=== PATIENT | female | born 1955 | race African-American/Black ===

== ENCOUNTER 2018-06-17 18:34 | Emergency (ER) | payer OTHER ==
[~2018-06-17] VITALS: Ht 162.6 cm; Wt 77.3 kg
[~2018-06-17 18:34] MED LIST: CETI10TA58 PO; GLIP5TAB11 PO; LOSA50TA65 PO; METF-515 PO; MULT-12 PO; OMEP20CA4; PIOG45TA18 PO; PIOG45TA64 PO
[2018-06-17 19:23] LABS: BASOPHILS % (AUTO) 0.4 % (0.0-2.0); EOSINOPHILS % (AUTO) 0.3 % (1.0-6.0); HEMATOCRIT 36.1 % (36-46); HEMOGLOBIN 12.2 g/dL (12.0-16.0); LYMPHOCYTES # (AUTO) 2.1 K/uL (1.0-4.8); LYMPHOCYTES % (AUTO) 37.5 % (22.0-44.0); MEAN CORPUSCULAR HEMOGLOBIN 29.2 pg (26.0-34.0); MEAN CORPUSCULAR HGB CONC 33.7 G/dL (31.0-37.0); MEAN CORPUSCULAR VOLUME 87 fL (80-100); MONOCYTES # (AUTO) 0.5 K/uL (0.1-1.0); MONOCYTES % (AUTO) 9.9 % (2.0-9.0); NEUTROPHILS # (AUTO) 2.9 K/uL (1.8-7.7); NEUTROPHILS % (AUTO) 51.9 % (40.0-70.0); PLATELET COUNT (AUTO) 216 K/uL (150-450); RED BLOOD CELL COUNT(AUTO) 4.17 MIL/uL (4.00-5.20); RED CELL DISTRIBUTION WIDTH 14.6 % (11.5-14.5)
[2018-06-17 19:29] LABS: ANION GAP 14 mmol/L (8-16); CALCIUM, TOTAL 9.4 mg/dL (8.8-10.5); CARBON DIOXIDE 23 mmol/L (22-29); CHLORIDE 99 mmol/L (98-107); CREATININE 0.82 mg/dL (0.60-1.30); GLOMERULAR FILTR. RATE CALC > 60 mL/min (>60); GLUCOSE,RANDOM 128 mg/dL (70-110); POTASSIUM 3.4 mmol/L (3.5-5.1); SODIUM SERUM 136 mmol/L (136-145); UREA NITROGEN, BLOOD 7 mg/dL (7-18)
[2018-06-17 19:35] LABS: ALANINE AMINOTRANSFERASE 30 U/L (12-78); ALBUMIN 3.6 g/dL (3.4-5.0); ALKALINE PHOSPHATASE 85 U/L (46-116); ASPARTATE AMINOTRANSFERASE 18 U/L (15-37); BILIRUBIN,TOTAL 0.3 mg/dL (0.1-1.0); CREATINE KINASE, TOTAL ONLY 54 U/L (26-192); LIPASE 64 U/L (73-393); TOTAL PROTEIN, SERUM 7.4 g/dL (6.4-8.2)
[2018-06-17 19:40] LABS: B-TYPE NATRIURETIC PEPTIDE 30 pg/mL (0-100)
[2018-06-17 20:19] LABS: GLUCOSE,POINT OF CARE 111 MG/DL (70-110)
[2018-06-17 20:20] LABS: APPEARANCE,URINE CLEAR (CLEAR); BILIRUBIN,URINE NEGATIVE (NEGATIVE); GLUCOSE, URINE (UA) NEGATIVE (NEGATIVE); KETONES,URINE NEGATIVE (NEGATIVE); LEUKOCYTE ESTERASE ,URINE NEGATIVE (NEGATIVE); NITRATE,URINE NEGATIVE (NEGATIVE); OCCULT BLOOD,URINE NEGATIVE (NEGATIVE); PH,URINE 5.5 (5.0-8.0); PROTEIN,URINE NEGATIVE (NEGATIVE); UROBILINOGEN,URINE 0.2 mg/dL (<=1.0)
[2018-06-17 21:56] VITALS: BP 154/68
[2018-06-17] MEDS ORDERED: PANTOPRAZOLE SODIUM 40 MG DR TABLET PO ONE (22:15)
== END 2018-06-17 22:35 | disposition home or self-care (01) ==
LOC: EMS 18:36
DX: R10.84 Generalized abdominal pain (principal); R14.0 Abdominal distension (gaseous); E11.9 Type 2 diabetes mellitus without complications; I10 Essential (primary) hypertension; Z79.899 Other long term (current) drug therapy
CPT/HCPCS: 74176; 76700; 93005

== ENCOUNTER 2019-12-04 17:56 | Emergency (ER) | payer MEDICARE, OTHER ==
[~2019-12-04] VITALS: Ht 157.5 cm; Wt 59.1 kg
[~2019-12-04 17:56] MED LIST changes: -PIOG45TA18 PO; +PIOG45TA63 PO
[2019-12-04 19:54] VITALS: BP 145/81
== END 2019-12-04 19:54 | disposition home or self-care (01) ==
LOC: EMS 17:56
DX: T78.40XA Allergy, unspecified, initial encounter (principal); E11.9 Type 2 diabetes mellitus without complications; I10 Essential (primary) hypertension; Z79.84 Long term (current) use of oral hypoglycemic drugs; X58.XXXA Exposure to other specified factors, initial encounter

== ENCOUNTER 2020-10-12 10:04 | Emergency (ER) | payer MEDICARE, OTHER ==
[~2020-10-12] VITALS: Ht 162.6 cm; Wt 72.0 kg
[~2020-10-12 10:04] MED LIST changes: -PIOG45TA64 PO
[2020-10-12] MEDS ORDERED: GABA-529 PO (11:06)
[2020-10-12] MEDS ORDERED: LORA10TA7 PO (11:06)
[2020-10-12] MEDS ORDERED: FAMO20 PO (11:06)
[2020-10-12] MEDS ORDERED: METO-391 PO (11:06)
[2020-10-12] MEDS ORDERED: ONDANSETRON HCL 4 MG/2 ML VIAL IVP ONE (11:30)
[2020-10-12] MEDS ORDERED: MORPHINE SULFATE 4 MG/ML SYRINGE IVP ONE (11:30)
[2020-10-12] MEDS ORDERED: MULT-13 PO (11:41)
[2020-10-12] MEDS ORDERED: ASPI-1444 PO (11:41)
[2020-10-12] MEDS ORDERED: GLIP10 PO (11:41)
[2020-10-12] MEDS ORDERED: METF-960 PO (11:41)
[2020-10-12 11:45] LABS: BASOPHILS % (AUTO) 0.5 % (0.0-2.0); EOSINOPHILS % (AUTO) 0.2 % (1.0-6.0); HEMATOCRIT 35.6 % (36-46); HEMOGLOBIN 12.1 g/dL (12.0-16.0); LYMPHOCYTES # (AUTO) 1.5 K/uL (1.0-4.8); LYMPHOCYTES % (AUTO) 45.8 % (22.0-44.0); MEAN CORPUSCULAR HEMOGLOBIN 31.8 pg (26.0-34.0); MEAN CORPUSCULAR HGB CONC 33.9 G/dL (31.0-37.0); MEAN CORPUSCULAR VOLUME 94 fL (80-100); MONOCYTES # (AUTO) 0.3 K/uL (0.1-1.0); MONOCYTES % (AUTO) 8.6 % (2.0-9.0); NEUTROPHILS # (AUTO) 1.5 K/uL (1.8-7.7); NEUTROPHILS % (AUTO) 44.9 % (40.0-70.0); PLATELET COUNT (AUTO) 222 K/uL (150-450); RED BLOOD CELL COUNT(AUTO) 3.79 MIL/uL (4.00-5.20); RED CELL DISTRIBUTION WIDTH 14.4 % (11.5-14.5)
[2020-10-12] MEDS ORDERED: MORPHINE SULFATE 2 MG/ML SYRINGE IVP ONE (11:45)
[2020-10-12 11:52] LABS: INR 1.1 (0.9-1.1); PROTHROMBIN TIME 11.9 SEC (9.4-11.6)
[2020-10-12 11:56] LABS: ANION GAP 11 mmol/L (8-16); CALCIUM, TOTAL 8.6 mg/dL (8.8-10.5); CARBON DIOXIDE 23 mmol/L (22-29); CHLORIDE 103 mmol/L (98-107); CREATININE 0.61 mg/dL (0.60-1.30); GLOMERULAR FILTR. RATE CALC > 60 mL/min (>60); GLUCOSE,RANDOM 146 mg/dL (70-110); POTASSIUM 4.3 mmol/L (3.5-5.1); SODIUM SERUM 137 mmol/L (136-145); UREA NITROGEN, BLOOD 7 mg/dL (7-18)
[2020-10-12 11:58] LABS: B-TYPE NATRIURETIC PEPTIDE 60 pg/mL (0-100)
[2020-10-12 12:01] LABS: ALANINE AMINOTRANSFERASE 27 U/L (12-78); ALBUMIN 3.6 g/dL (3.4-5.0); ALKALINE PHOSPHATASE 71 U/L (46-116); ASPARTATE AMINOTRANSFERASE 16 U/L (15-37); BILIRUBIN,TOTAL 0.3 mg/dL (0.1-1.0); CREATINE KINASE, TOTAL ONLY 50 U/L (26-192); LIPASE 40 U/L (73-393)
[2020-10-12 13:54] VITALS: BP 182/91
== END 2020-10-12 14:58 | disposition home or self-care (01) ==
LOC: EMS 10:39
DX: G89.29 Other chronic pain (principal); M54.5 Low back pain; R07.81 Pleurodynia; R10.13 Epigastric pain; E11.9 Type 2 diabetes mellitus without complications; I10 Essential (primary) hypertension; Z87.39 Personal history of other diseases of the musculoskeletal system and connective tissue; Z79.84 Long term (current) use of oral hypoglycemic drugs; Z79.82 Long term (current) use of aspirin
CPT/HCPCS: 36415; 71045; 71250; 72128; 72131; 74176; 80053; 82550; 83690; 83880; 84484; 85025; 85610; 85730; 93005; 96374; 96375; 99285; J2270; J2405; 72192; 74150

== ENCOUNTER 2021-07-02 12:14 | Emergency (ER) | payer MEDICARE, OTHER ==
[~2021-07-02] VITALS: Ht 162.6 cm; Wt 59.0 kg
[~2021-07-02 12:14] MED LIST changes: +ASPI-1444 PO; -CETI10TA58 PO; +FAMO20 PO; +GABA-529 PO; +GLIP10 PO; -GLIP5TAB11 PO; +LORA10TA7 PO; +METF-1211 PO; -METF-515 PO; +METO-391 PO; -MULT-12 PO; +MULT-14 PO; -OMEP20CA4
[2021-07-02] MEDS ORDERED: HYDROCODONE/ACETAMINOPHEN 5-325 MG TABLET PO ONE (13:15)
[2021-07-02] MEDS ORDERED: HYDR-4723 PO ×2 (15:03→16:00)
[2021-07-02 15:33] VITALS: BP 146/82
== END 2021-07-02 15:42 | disposition home or self-care (01) ==
LOC: EMS 12:17
DX: G89.29 Other chronic pain (principal); M54.50 Low back pain, unspecified; I10 Essential (primary) hypertension; E11.9 Type 2 diabetes mellitus without complications; Z79.82 Long term (current) use of aspirin; Z79.84 Long term (current) use of oral hypoglycemic drugs; Z79.899 Other long term (current) drug therapy
CPT/HCPCS: 72072; 72100; 82962; 93005; 99284

== ENCOUNTER 2022-12-26 14:23 | Emergency (ER) | payer MEDICARE, OTHER ==
[~2022-12-26] VITALS: Ht 165.1 cm; Wt 70.5 kg
[~2022-12-26 14:23] MED LIST changes: -GLIP10 PO; +GLIP10TA10 PO; +HYDR-4723 PO
[2022-12-26 14:29] VITALS: TEMP 98.2
[2022-12-26] MEDS ORDERED: KETOROLAC TROMETHAMINE 30 MG/ML VIAL IM ONE (17:15)
[2022-12-26] MEDS ORDERED: HYDROCODONE/ACETAMINOPHEN 5-325 MG TABLET PO ONE (17:15)
[2022-12-26 18:17] VITALS: BP 160/55; PULSE 73; RESP 16
[2022-12-26] MEDS ORDERED: HYDR-4723 PO (19:35)
== END 2022-12-26 20:11 | disposition home or self-care (01) ==
LOC: EMS 14:25
DX: M25.552 Pain in left hip (principal); M25.551 Pain in right hip; E11.9 Type 2 diabetes mellitus without complications; I10 Essential (primary) hypertension; Z98.890 Other specified postprocedural states
CPT/HCPCS: 99283; 82962; 73521; 96372; J1885

== ENCOUNTER 2023-03-08 10:37 | Emergency (ER) | payer MEDICARE, OTHER ==
[~2023-03-08] VITALS: Ht 162.6 cm; Wt 61.4 kg
[~2023-03-08 10:37] MED LIST changes: -ASPI-1444 PO; -FAMO20 PO; -GABA-529 PO; -GLIP10TA10 PO; -LORA10TA7 PO; -LOSA50TA65 PO; -METF-1211 PO; -METO-391 PO; -MULT-14 PO; -PIOG45TA63 PO
[2023-03-08 10:40] VITALS: TEMP 98.3
[2023-03-08] MEDS ORDERED: PRAV40TA4 PO (10:45)
[2023-03-08] MEDS ORDERED: FAMO20TA8 PO (10:45)
[2023-03-08] MEDS ORDERED: METO-391 PO (10:45)
[2023-03-08] MEDS ORDERED: FAMO20 PO (10:45)
[2023-03-08] MEDS ORDERED: GABA600T10 PO (10:45)
[2023-03-08] MEDS ORDERED: LORA10TA7 PO (10:45)
[2023-03-08] MEDS ORDERED: DENO60DI SQ (10:45)
[2023-03-08] MEDS ORDERED: ONDANSETRON HCL 4 MG/2 ML VIAL IVP ONE (11:00)
[2023-03-08] MEDS ORDERED: SODIUM CHLORIDE 0.9% 1,000 ML IV ONE ×2 (11:00→12:15)
[2023-03-08] MEDS ORDERED: MORPHINE SULFATE 2 MG/ML SYRINGE IVP ONE (11:00)
[2023-03-08 11:16] LABS: EOSINOPHILS % (AUTO) 0 % (1.0-6.0); HEMATOCRIT 39.7 % (36-46); HEMOGLOBIN 13.4 g/dL (12.0-16.0); LYMPHOCYTES # (AUTO) 1.8 K/uL (1.0-4.8); LYMPHOCYTES % (AUTO) 30.5 % (22.0-44.0); MEAN CORPUSCULAR HEMOGLOBIN 31.9 pg (26.0-34.0); MEAN CORPUSCULAR HGB CONC 33.8 G/dL (31.0-37.0); MEAN CORPUSCULAR VOLUME 95 fL (80-100); MONOCYTES # (AUTO) 0.5 K/uL (0.1-1.0); MONOCYTES % (AUTO) 8.3 % (2.0-9.0); NEUTROPHILS # (AUTO) 3.6 K/uL (1.8-7.7); NEUTROPHILS % (AUTO) 60.2 % (40.0-70.0); PLATELET COUNT (AUTO) 244 K/uL (150-450); RED CELL DISTRIBUTION WIDTH 15.5 % (11.5-14.5)
[2023-03-08 11:46] VITALS: BP 147/75; PULSE 105; RESP 26
[2023-03-08 12:08] LABS: ALANINE AMINOTRANSFERASE 17 U/L (12-78); ALBUMIN 3.5 g/dL (3.4-5.0); ALKALINE PHOSPHATASE 63 U/L (46-116); ANION GAP 14 mmol/L (8-16); ASPARTATE AMINOTRANSFERASE 20 U/L (15-37); BILIRUBIN,TOTAL 0.7 mg/dL (0.1-1.0); CARBON DIOXIDE 22 mmol/L (22-29); CHLORIDE 105 mmol/L (98-107); GLOMERULAR FILTR. RATE CALC > 60 mL/min (>60); GLUCOSE,RANDOM 139 mg/dL (70-110); LIPASE 15 U/L (16-77); SODIUM SERUM 141 mmol/L (136-145); TOTAL PROTEIN, SERUM 6.8 g/dL (6.4-8.2); UREA NITROGEN, BLOOD 11 mg/dL (7-18)
[2023-03-08 12:09] LABS: TROPONIN I-HIGH SENSITIVITY 11 ng/L (<51)
[2023-03-08 12:11] LABS: POTASSIUM 2.9 mmol/L (3.5-5.1)
[2023-03-08] MEDS ORDERED: POTASSIUM CHLORIDE 20 MEQ ER TABLET PO ONE (12:30)
[2023-03-08 12:51] LABS: APPEARANCE,URINE CLEAR (CLEAR); BILIRUBIN,URINE NEGATIVE (NEGATIVE); COLOR,URINE LIGHT YELLOW (YELLOW); GLUCOSE, URINE (UA) NEGATIVE (NEGATIVE); LEUKOCYTE ESTERASE ,URINE NEGATIVE (NEGATIVE); NITRATE,URINE NEGATIVE (NEGATIVE); OCCULT BLOOD,URINE NEGATIVE (NEGATIVE); PROTEIN,URINE NEGATIVE (NEGATIVE); SPECIFIC GRAVITIY, URINE 1.012 (1.003-1.030); UROBILINOGEN,URINE <=1.0 mg/dL (<=1.0)
[2023-03-08] MEDS ORDERED: DOCU-385 PO (12:56)
== END 2023-03-08 13:28 | disposition home or self-care (01) ==
LOC: EMS 10:39
DX: K59.00 Constipation, unspecified (principal); E87.6 Hypokalemia; R10.84 Generalized abdominal pain; E11.9 Type 2 diabetes mellitus without complications; I10 Essential (primary) hypertension; Z98.890 Other specified postprocedural states
CPT/HCPCS: 99285; 74176; 96374; 71045; 96361; 96375; 80053; 81003; 82962; 83690; 84484; 85025; 36415; 93005; J2270; J2405; J7030

== ENCOUNTER 2023-08-17 02:07 | Emergency (ER) | payer MEDICARE, OTHER ==
[~2023-08-17] VITALS: Ht 162.6 cm; Wt 52.3 kg
[~2023-08-17 02:07] MED LIST changes: +DENO60DI SQ; +DOCU-385 PO; +FAMO20 PO; +FAMO20TA8 PO; +GABA600T10 PO; -HYDR-4723 PO; +LORA10TA7 PO; +PRAV40TA4 PO
[2023-08-17 02:19] VITALS: BP 159/86; PULSE 86; RESP 17; TEMP 98.3
[2023-08-17] MEDS ORDERED: LIDO700A15 TP (02:33)
[2023-08-17] MEDS ORDERED: ACET-2247 PO (02:33)
[2023-08-17] MEDS: LIDOCAINE 5% TRANSDERMAL PATCH TD ONE (02:45)
[2023-08-17] MEDS: ACETAMINOPHEN 325 MG TABLET PO ONE (02:45)
[2023-08-17] MEDS: KETOROLAC TROMETHAMINE 30 MG/ML VIAL IM ONE (02:46)
== END 2023-08-17 03:07 | disposition home or self-care (01) ==
LOC: EMS 02:07
DX: G89.29 Other chronic pain (principal); M54.50 Low back pain, unspecified; E11.9 Type 2 diabetes mellitus without complications; I10 Essential (primary) hypertension
CPT/HCPCS: 99283; 96372; J1885

== ENCOUNTER 2024-05-05 05:49 | Emergency (ER) | payer MEDICARE, OTHER ==
[~2024-05-05] VITALS: Ht 167.6 cm; Wt 56.8 kg
[~2024-05-05 05:49] MED LIST changes: +ACET-2247 PO; +GABA-1404 PO; -GABA600T10 PO; +LIDO700A15 TP
[2024-05-05] MEDS: TraMADol HCL 50 MG TABLET PO ONE (07:32)
[2024-05-05 07:34] LABS: COVID AG,FIA SOURCE NASAL SWAB
[2024-05-05 07:46] LABS: ANION GAP 9 mmol/L (8-16); CALCIUM, TOTAL 8.4 mg/dL (8.8-10.5); CARBON DIOXIDE 24 mmol/L (22-29); CHLORIDE 106 mmol/L (98-107); CREATININE 0.64 mg/dL (0.60-1.30); GLOMERULAR FILTR. RATE CALC > 60 mL/min (>60); GLUCOSE,RANDOM 118 mg/dL (70-110); POTASSIUM 4.7 mmol/L (3.5-5.1); SODIUM SERUM 139 mmol/L (136-145); UREA NITROGEN, BLOOD 15 mg/dL (7-18)
[2024-05-05] MEDS: SODIUM CHLORIDE 0.9% 1,000 ML IV ONE (07:46)
[2024-05-05 07:48] LABS: APPEARANCE,URINE CLEAR (CLEAR); BILIRUBIN,URINE NEGATIVE (NEGATIVE); COLOR,URINE LIGHT YELLOW (YELLOW); GLUCOSE, URINE (UA) NEGATIVE (NEGATIVE); KETONES,URINE NEGATIVE (NEGATIVE); LEUKOCYTE ESTERASE ,URINE NEGATIVE (NEGATIVE); NITRATE,URINE NEGATIVE (NEGATIVE); OCCULT BLOOD,URINE TRACE (NEGATIVE); PROTEIN,URINE TRACE mg/dL (NEGATIVE); SPECIFIC GRAVITIY, URINE 1.017 (1.003-1.030); UROBILINOGEN,URINE <=1.0 mg/dL (<=1.0)
[2024-05-05 07:55] LABS: BACTERIA,URINE None Seen /HPF (None Seen); RBC,URINE None Seen /HPF (0-2); SQUAMOUS EPITHELIAL CELL,UR Few /LPF (None Seen); WBC,URINE 0-2 /HPF (0-5)
[2024-05-05 08:04] LABS: SARS-COV2 (COVID) ANTIGEN,FIA Negative (Negative)
[2024-05-05 08:05] LABS: INFLUENZA TYPE A NEGATIVE FOR TYPE A (NEGATIVE); INFLUENZA TYPE B NEGATIVE FOR TYPE B (NEGATIVE)
[2024-05-05 08:27] LABS: BASOPHILS % (AUTO) 0.3 % (0.0-2.0); EOSINOPHILS % (AUTO) 1.4 % (1.0-6.0); HEMOGLOBIN 10.6 g/dL (12.0-16.0); LYMPHOCYTES # (AUTO) 1.2 K/uL (1.0-4.8); LYMPHOCYTES % (AUTO) 34.9 % (22.0-44.0); MEAN CORPUSCULAR HEMOGLOBIN 33.4 pg (26.0-34.0); MEAN CORPUSCULAR HGB CONC 33.1 G/dL (31.0-37.0); MEAN CORPUSCULAR VOLUME 101 fL (80-100); MONOCYTES # (AUTO) 0.4 K/uL (0.1-1.0); MONOCYTES % (AUTO) 12.1 % (2.0-9.0); NEUTROPHILS # (AUTO) 1.8 K/uL (1.8-7.7); NEUTROPHILS % (AUTO) 51.3 % (40.0-70.0); PLATELET COUNT (AUTO) 186 K/uL (150-450); RED BLOOD CELL COUNT(AUTO) 3.17 MIL/uL (4.00-5.20); RED CELL DISTRIBUTION WIDTH 14.2 % (11.5-14.5); WHITE BLOOD COUNT (AUTO) 3.5 K/uL (4.5-11.0)
[2024-05-05] MEDS ORDERED: TRAM50TA5 PO (08:46)
[2024-05-05 08:57] VITALS: BP 135/60; PULSE 88; RESP 15; TEMP 97.5; O2SAT 100
== END 2024-05-05 09:04 | disposition home or self-care (01) ==
LOC: EMS 05:51
DX: E11.42 Type 2 diabetes mellitus with diabetic polyneuropathy (principal); I10 Essential (primary) hypertension; G89.29 Other chronic pain; M54.50 Low back pain, unspecified; Z79.899 Other long term (current) drug therapy; Z20.822 Contact with and (suspected) exposure to COVID-19
CPT/HCPCS: 99283; 96360; 87426; 80048; 81001; 85025; 87804; 36415; J7030